=== PATIENT | female | born 1940 | race Hispanic/Latino ===

== ENCOUNTER 2020-01-26 20:39 | Emergency (ER) | payer MEDICARE, OTHER ==
[~2020-01-26] VITALS: Ht 154.9 cm; Wt 73.5 kg
[~2020-01-26 20:39] MED LIST: LEXAPRO PO; TRAMADOL HCL-A1 EAC1 PO; Z.0.ALPRAZOLAM0.5 MG PO; Z.0.LOVASTATIN20 MG PO; Z.0.MELOXICAM7.5 MG PO
[2020-01-26] MEDS ORDERED: IBUPROFEN 600 MG TAB PO STA ×2 (20:46→20:49)
[2020-01-26] MEDS ORDERED: CYCLOBENZAPRINE HCL 10 MG TAB PO ONE (21:00)
--- NOTE | 2020-01-26 22:16 | Diagnostic Imaging Report ---
Exam: Left elbow 3 views, left shoulder 2 views History: Fall on shoulder, laceration to elbow Comparison: None. Findings: Elbow: No acute, displaced fracture or dislocation. No joint effusion. Soft tissues unremarkable. No gross defect or radiopaque foreign body. Shoulder: Transscapular radiograph is suboptimal. Acute, comminuted fracture involving the surgical neck and greater tuberosity of the humerus with approximately 2 cm fracture fragment overriding. The humeral head is inferiorly displaced relative to the glenoid probably due to hemarthrosis. Acromioclavicular joint is intact. Impression: Acute, comminuted fracture of the surgical neck and greater tuberosity of the left humerus with fragment overriding as above. Signed by: Dr. Avila Grey M.D. on 01/26/2020 10:13 PM
--- NOTE | 2020-01-26 22:19 | Diagnostic Imaging Report ---
EXAMINATION: PA and lateral views of the chest. COMPARISON: None CLINICAL HISTORY: Fall DISCUSSION: The lungs are well inflated. No focal airspace consolidation, pleural effusion, or pneumothorax. Mild reticular prominence likely age-related fibrotic changes. Tortuous thoracic aorta with atherosclerotic calcification. Normal heart size. No overt pulmonary edema. Age-indeterminate moderate anterior compression deformity of a lower thoracic vertebral body, likely T12. Comminuted fracture of the surgical neck and greater tuberosity of the left humerus partially visualized. IMPRESSION: No acute cardiopulmonary abnormality. Partially visualized proximal left humeral fracture. Refer to dedicated shoulder radiographs same day for full details. Age-indeterminate moderate anterior compression deformity of a lower thoracic vertebral body, probably T12. Correlate for point tenderness which would suggest relative acuity. Signed by: Dr. Avila Grey M.D. on 01/26/2020 10:16 PM
[2020-01-26] MEDS ORDERED: HYDROCODONE/APAP 10MG-325MG TAB PO ONE (23:00)
--- NOTE | 2020-01-27 | Diagnostic Imaging Report ---
EXAMINATION: CT scan of the left shoulder and humerus without contrast TECHNIQUE: Spiral CT images of the left shoulder and humerus were obtained with supplemental coronal and sagittal reformatted images. No intravenous contrast was administered. COMPARISON: Plain films same day CLINICAL HISTORY:Fall DISCUSSION: ABSENCE OF INTRAVENOUS CONTRAST DECREASES SENSITIVITY FOR DETECTION OF FOCAL LESIONS AND VASCULAR PATHOLOGY. Redemonstration of the acute, comminuted fracture of the surgical neck of the left humerus with involvement of the greater tuberosity. There is overriding of the major fracture fragments by approximately 1.6 cm. The glenohumeral joint is maintained. Diffuse soft tissue swelling about the shoulder. No additional displaced fractures. The distal humerus is intact. IMPRESSION: Acute, comminuted fracture of the surgical neck and greater tuberosity of the left humerus with fracture fragment overriding as discussed. No glenohumeral dislocation. No additional fractures. Surrounding soft tissue and intramuscular hematoma. Signed by: Dr. Avila Grey M.D. on 01/26/2020 11:57 PM
[2020-01-28] MEDS ORDERED: PANTOPRAZOLE SO40 MG PO (13:09)
== END 2020-01-27 00:50 | disposition home or self-care (01) ==
LOC: ER 20:39
DX: S40.012A Contusion of left shoulder, initial encounter (principal); S50.02XA Contusion of left elbow, initial encounter; W18.30XA Fall on same level, unspecified, initial encounter; Y92.008 Other place in unspecified non-institutional (private) residence as the place of occurrence of the external cause; E78.5 Hyperlipidemia, unspecified; F41.9 Anxiety disorder, unspecified; K21.9 Gastro-esophageal reflux disease without esophagitis
CPT/HCPCS: 71046; 99283

== ENCOUNTER 2020-01-30 09:05 | Observation (INO) | payer MEDICARE ==
[2020-01-28 13:15] LABS: BASOPHILS % 0.2 % (0.0-1.0); EOSINOPHILS # (AUTO) 0.2 (0.0-0.4); EOSINOPHILS % 2.2 % (0.0-6.0); HEMATOCRIT 32.6 % (34.2-44.1); HEMOGLOBIN 10.5 g/dL (12.0-16.0); LYMPHOCYTES # (AUTO) 2.1 (1.0-3.2); LYMPHOCYTES % 22.9 % (18.0-39.1); MEAN CORPUSCULAR HEMOGLOBIN 32.9 pg (28-32); MEAN CORPUSCULAR HGB CONC 32.2 g/dL (31-35); MEAN CORPUSCULAR VOLUME 102.2 fL (81-99); MONOCYTES # (AUTO) 0.7 (0.2-0.8); MONOCYTES % 7.6 % (4.4-11.3); NEUTROPHILS % 66.8 % (38.7-80.0); PLATELET COUNT 159 x10e3/uL (140-360); RED BLOOD COUNT 3.19 x10e6/uL (3.6-5.1); RED CELL DISTRIBUTION WIDTH 13.3 % (11.7-14.4)
[~2020-01-30] VITALS: Ht 152.4 cm; Wt 77.6 kg
[~2020-01-30 09:05] MED LIST changes: +PANTOPRAZOLE SO40 MG PO
--- OUTSIDE RECORDS SUMMARY | 2020-01-30 09:07 | XMS REPORT ---
Author [facility] Address Unknown Phone Unavailable Care Team Providers Care Machining Technician Name Role Phone NATALIE SALES Unavailable Unavailable Problems This patient has no known problems. Allergies, Adverse Reactions, Alerts This patient has no known allergies or adverse reactions. Medications This patient has no known medications. Results Test Description Test Time Test Comments Text Results Atomic Results Result Comments CT SHOULDER LEFT WO 2020-01-26 23:53:00 [place] [address] Patient Name: JOE PETERS MR #: [id number] : 1940 Age/Sex: 79/F Req #: [id number] Adm Physician: Ordered by: NATALIE SALES DO Report #: [id number] Location: ER Room/Bed: Procedure: [id number] CT/CT SHOULDER LEFT WO Exam Date: 01/26/20 Exam Time: 2330 REPORT STATUS: Signed EXAMINATION: CT scan of the left shoulder and humerus without contrast TECHNIQUE: Spiral CT images of the left shoulder and humerus were obtained with supplemental coronal and sagittal reformatted images. No intravenous contrast was administered. COMPARISON: Plain films same day CLINICAL HISTORY:Fall DISCUSSION: ABSENCE OF INTRAVENOUS CONTRAST DECREASES SENSITIVITY FOR DETECTION OF FOCAL LESIONS AND VASCULAR PATHOLOGY. Redemonstration of the acute, comminuted fracture of the surgical neck of the left humerus with involvement of the greater tuberosity. There is overriding of the major fracture fragments by approximately 1.6 cm. The glenohumeral joint is maintained. Diffuse soft tissue swelling about the shoulder. No additional displaced fractures. The distal humerus is intact. IMPRESSION: Acute, comminuted fracture of the surgical neck and greater tuberosity of the left humerus with fracture fragment overriding as discussed. No glenohumeral dislocation. No additional fractures. Surrounding soft tissue and intramuscular hematoma. Signed by: Dr. Leon López M.D. on 01/26/2020 11:57 PM Dictated By: LEON LÓPEZ MD 56 Transcribed By: LEORA on 01/26/202356 COPY TO: NATALIE SALES DO CT HUMERUS LEFT WO 2020-01-26 23:53:00 [place] [address] Patient Name: JOE PETERS MR #: [id number] : 1940 Age/Sex: 79/F Req #: [id number] Adm Physician: Ordered by: NATALIE SALES DO Report #: [id number] Location: ER Room/Bed: Procedure: [id number] CT/CT HUMERUS LEFT WO Exam Date: 01/26/20 Exam Time: 2330 REPORT STATUS: Signed EXAMINATION: CT scan of the left shoulder and humerus without contrast TECHNIQUE: Spiral CT images of the left shoulder and humerus were obtained with supplemental coronal and sagittal reformatted images. No intravenous contrast was administered. COMPARISON: Plain films same day CLINICAL HISTORY:Fall DISCUSSION: ABSENCE OF INTRAVENOUS CONTRAST DECREASES SENSITIVITY FOR DETECTION OF FOCAL LESIONS AND VASCULAR PATHOLOGY. Redemonstration of the acute, comminuted fracture of the surgical neck of the left humerus with involvement of the greater tuberosity. There is overriding of the major fracture fragments by approximately 1.6 cm. The glenohumeral joint is maintained. Diffuse soft tissue swelling about the shoulder. No additional displaced fractures. The distal humerus is intact. IMPRESSION: Acute, comminuted fracture of the surgical neck and greater tuberosity of the left humerus with fracture fragment overriding as discussed. No glenohumeral dislocation. No additional fractures. Surrounding soft tissue and intramuscular hematoma. Signed by: Dr. eLon López M.D. on 01/26/2020 11:57 PM Dictated By: LEON LÓPEZ MD 56 Transcribed By: LEORA on 01/26/202356 COPY TO: NATALIE SALES DO CHEST 2 VIEWS 2020-01-26 22:13:00 [place] [address] Patient Name: JOE PETERS MR #: [id number] : 1940 Age/Sex: 79/F Req #: [id number] Adm Physician: Ordered by: NALLELY LEE GOLF PROFESSIONAL Report #: [id number] Location: ER Room/Bed: Procedure: [id number] DX/CHEST 2 VIEWS Exam Date: 01/26/20 Exam Time: 2144 REPORT STATUS: Signed EXAMINATION: PA and lateral views of the chest. COM PARISON: None CLINICAL HISTORY: Fall DISCUSSION: The lungs are well inflated. No focal airspace consolidation, pleural effusion, or pneumothorax. Mild reticular prominence likely age-related fibrotic changes. Tortuous thoracic aorta with atherosclerotic calcification. Normal heart size. No overt pulmonary edema. Age-indeterminate moderate anterior compression deformity of a lower thoracic vertebral body, likely T12. Comminuted fracture of the surgical neck and greater tuberosity of the left humerus partially visualized. IMPRESSION: No acute cardiopulmonary abnormality. Partially visualized proximal left humeral fracture. Refer to dedicated shoulder radiographs same day for full details. Age- indeterminate moderate anterior compression deformity of a lower thoracic vertebral body, probably T12. Correlate for point tenderness which would suggest relative acuity. Signed by: Dr. Leon López M.D. on 01/26/2020 10:16 PM Dictated By: LEON LÓPEZ MD 15 Transcribed By: LEORA on 01/26/202215 COPY TO: NALLELY LEE NP SHOULDER LEFT COMPLETE 2020-01-26 22:10:00 [place] [address] Patient Name: JOE PETERS MR #: [id number] : 1940 Age/Sex: 79/F Req #: [id number] Adm Physician: Ordered by: NALLELY LEE NP Report #: [id number] Location: ER Room/Bed: Procedure: [id number] DX/SHOULDER LEFT COMPLETE Exam Date: 01/26/20 Exam Time: 2144 REPORT STATUS: Signed Exam: Left elbow 3 views, left shoulder 2 views History: Fall on shoulder, laceration to elbow Comparison: None. Findings: Elbow: No acute, displaced fracture or dislocation. No joint effusion. Soft tissues unremarkable. No gross defect or radiopaque foreign body. Shoulder: Transscapular radiograph is suboptimal. Acute, comminuted fracture involving the surgical neck and greater tuberosity of the humerus with approximately 2 cm fracture fragment overriding. The humeral head is inferiorly displaced relative to the glenoid probably due to hemarthrosis. Acromioclavicular joint is intact. Impression: Acute, comminuted fracture of the surgical neck and greater tuberosity of the left humerus with fragment overriding as above. Signed by: Dr. Leon López M.D. on 01/26/2020 10:13 PM Dictated By: LEON LÓPEZ MD 12 Transcribed By: LEORA on 01/26/202212 COPY TO: NALLELY LEE NP ELBOW LEFT COMPLETE 2020-01-26 22:10:00 [place] [address] Patient Name: JOE PETERS MR #: [id number] : 1940 Age/Sex: 79/F Req #: [id number] Adm Physician: Ordered by: NALLELY LEE NP Report #: [id number] Location: ER Room/Bed: Procedure: [id number] DX/ELBOW LEFT COMPLETE Exam Date: 01/26/20 Exam Time: 2144 REPORT STATUS: Signed Exam: Left elbow 3 views, left shoulder 2 views History: Fall on shoulder, laceration to elbow Comparison: None. Findings: Elbow: No acute, displaced fracture or dislocation. No joint effusion. Soft tissues unremarkable. No gross defect or radiopaque foreign body. Shoulder: Transscapular radiograph is suboptimal. Acute, comminuted fracture involving the surgical neck and greater tuberosity of the humerus with approximately 2 cm fracture fragment overriding. The humeral head is inferiorly displaced relative to the glenoid probably due to hemarthrosis. Acromioclavicular joint is intact. Impression: Acute, comminuted fracture of the surgical neck and greater tuberosity of the left humerus with fragment overriding as above. Signed by: Dr. Leon López M.D. on 01/26/2020 10:13 PM Dictated By: LEON LÓPEZ MD 12 Transcribed By: LEORA on 01/26/202212 COPY TO: NALLELY LEE GOLF PROFESSIONAL SCR MAMM BILATERAL CEDRIC CAD DIGITAL 2019-12-12 16:16:54 - SCR MAMM BILATERAL CEDRIC CAD DIGITALBILATERAL DIGITAL SCREENING MAMMOGRAM 3D/2D WITH CAD: 12/08/2019CLINICAL: Asymptomatic. Digital breast tomosynthesis was performed in addition to routine CC and MLO views. Current mammographic images were evaluated by either a [employer] M-Vu or a [employer] ImageChecker CAD (computer aided detection system). Comparison is made to exams dated 09/12/2018 mammogram, 07/29 mammogram, and 03/11/2014 mammogram - [facility]. There are scattered fibroglandular tissues in both breasts. There are benign calcifications in both breasts. There also are benign intramammary nodes in both breasts. No suspicious mass, architectural distortion, malignant type calcification, or lymph node abnormality detected. Breast architecture is stable compared to prior exams.IMPRESSION: BENIGNThere is no mammographic evidence of malignancy. Resume annual screening mammography in one year. Adela adams/penkamini:12/12/2019 16:16:54 Scorer Single: Mely MOELLER, [facility]: BIRADS 1-2 Normal Mammogram BI-RADS: 2 Benign
[2020-01-30] MEDS ORDERED: CYCLOBENZAPRINE10 MG PO (09:52)
[2020-01-30] MEDS ORDERED: ULTRAM50 MG PO (09:52)
[2020-01-30] MEDS ORDERED: NAPROXEN500 MG PO (09:52)
[2020-01-30] MEDS ORDERED: CEFAZOLIN SOD 1 GM/NS 50ML 100 ML IV ONE (09:54)
[2020-01-30] MEDS ORDERED: BACITRACIN 50,000 UNIT VIAL ONE (12:08)
[2020-01-30] MEDS ORDERED: LIDOCAINE 1% W/EPINEPHRINE 20 ML VIAL ONE (13:25)
[2020-01-30] MEDS ORDERED: ROCURONIUM BROMIDE 10 MG/ML 5ML VIAL ONE (13:38)
[2020-01-30] MEDS ORDERED: PROPOFOL IV EMULSION 10 MG/ML 20 ML VIAL ONE (13:38)
[2020-01-30] MEDS ORDERED: DESFLURANE 240 ML BTL INH ONE (13:38)
[2020-01-30] MEDS ORDERED: DEXAMETHASONE SOD PHOS INJ 4 MG/ML VIAL ONE (13:38)
[2020-01-30] MEDS ORDERED: LIDOCAINE HCL 2% LOCAL INJ 5 ML SDV VIAL INJ ONE (13:38)
[2020-01-30] MEDS ORDERED: NEOSTIGMINE 1 MG/ML 10ML VIAL ONE (13:38)
[2020-01-30] MEDS ORDERED: ONDANSETRON HCL INJ 2MG/ML 2ML 2 MG/ML VIAL ONE (13:38)
[2020-01-30] MEDS ORDERED: GLYCOPYRROLATE INJ 0.2 MG/ML VIAL ONE (13:38)
[2020-01-30] MEDS ORDERED: ONDANSETRON HCL INJ 2MG/ML 2ML 2 MG/ML VIAL IV PRN (14:45)
[2020-01-30] MEDS ORDERED: HYDROMORPHONE 0.2MG/ML-SOD CHL 30ML PCA SYRINGE IV PRN (14:45)
[2020-01-30] MEDS ORDERED: NALOXONE HCL INJ 0.4 MG/ML AMP IV PRN (14:45)
[2020-01-30] MEDS ORDERED: ROPIVACAINE 0.5% 5 MG/ML 30 ML SDV ONE (15:23)
[2020-01-30] MEDS ORDERED: LIDOCAINE 2% /EPINEPHRINE 20 ML SDV INJ ONE (15:23)
[2020-01-30] MEDS ORDERED: MIDAZOLAM HCL 2 MG/2 ML VIAL ONE (15:31)
[2020-01-30] MEDS ORDERED: FENTANYL CITRATE/PF 100MCG/2 ML INJ ONE (15:31)
--- NOTE | 2020-01-30 16:16 | NUR ---
Received patient via stretcher. Accompanied by son. ADALGISAOX4 to time, person, place, situation. Respirations even and unlabored. Left arm with sling/immobilizer. Dressing to left upper arm clean, dry, and intact. Oriented patient and son to room. Instructed to use call light for assistance. Voiced understanding.
[2020-01-30 16:23] VITALS: BP 130/60
[2020-01-30 17:00] VITALS: BP 130/60
[2020-01-30] MEDS: SODIUM CHLORIDE 0.9% 1000ML 1,000 ML IV SCH (17:28)
--- NOTE | 2020-01-30 17:30 | NUR ---
Patient voided without discomfort
[2020-01-30] MEDS ORDERED: PEPCID20 MG PO (17:42)
--- NOTE | 2020-01-30 19:15 | NUR ---
Report given to oncoming nurse of patient's status. Resting in bed. AAOX3 to time,person, place. Respirations even and unlabored. Side rails upx2, call light within reach, family at bedside.
--- NOTE | 2020-01-30 19:23 | NUR ---
Received bedside report from day nurse. Patient awake and resting in bed, no s/s of distress at this time. All safety measures in place. Family at bedside. Will continue to monitor.
[2020-01-30 20:00] VITALS: BP 158/71
[2020-01-30 22:22] VITALS: BP 158/71
[2020-01-30] MEDS: CEFAZOLIN SOD 1 GM/NS 50ML 50 ML IV SCH (22:35)
[2020-01-31] VITALS (7 sets, daily range): BP systolic 131–168; BP diastolic 63–88
[2020-01-31 06:04] LABS: HEMATOCRIT 28.9 % (34.2-44.1); HEMOGLOBIN 9.2 g/dL (12.0-16.0)
[2020-01-31] MEDS: SODIUM CHLORIDE 0.9% 1000ML 1,000 ML IV SCH (06:16)
[2020-01-31] MEDS: CEFAZOLIN SOD 1 GM/NS 50ML 50 ML IV SCH ×2 (06:16→12:17)
--- NOTE | 2020-01-31 10:34 | NUR ---
Patient alert and responsive, OOB and ambulated in the room with assist, sling and immobilizer in place, pains well managed, will monitor.
--- NOTE | 2020-01-31 12:08 | NUR ---
MALDONADO EXPLAINED TO PT, SIGNED BY PT AND PLACED IN CHART COPY OF MALDONADO TO PT IN CARE TRANSITIONS FOLDER
--- NOTE | 2020-01-31 13:30 | NUR ---
Rounds by Dr. Irwin, orders to d/c DROSS PULLER pump and to change dressing today, and patient will be discharged today. Patient OOB and sitting up on chair in the room,
--- NOTE | 2020-01-31 15:14 | NUR ---
Dressing changed to left shoulder, scant dry bloody drainage and lm well approximated, no erythema noted, new dressing applied and sling still in place.
--- NOTE | 2020-01-31 16:02 | NUR ---
Patient stable, provided with discharge summary and prescription, contacts for f/u appointment, pains well managed. IV line removed with cath tip in place, dressing applied. Sling in place to left arm, patient discharged.
--- NOTE | 2020-01-31 23:44 | Operative Report ---
DATE OF PROCEDURE: 01/30/2020 SURGEON: Juan Pablo Irwin MD PREOPERATIVE DIAGNOSIS: Three-part left proximal humerus fracture. POSTOPERATIVE DIAGNOSIS: Three-part left proximal humerus fracture. OPERATION/PROCEDURE PERFORMED: The patient underwent an open reduction and internal fixation of the left three-part proximal humerus fracture. HOME VISIT FIELD CARE MANAGER: BHAKTI Lin ANESTHESIA: General endotracheal intubation anesthesia. IV FLUIDS: Per the Anesthesia record. BRIEF DISCUSSION OF THE PATIENT'S OPERATIVE PROCEDURE: Ms. Escobedo was taken to the operating room and placed in supine position on the operating table. Following induction of general anesthesia as well as endotracheal intubation, the patient's left upper extremity was examined under anesthesia. She was found to have bruising and ecchymosis involving the left arm. Fluoroscopic evaluation of the left proximal humerus demonstrated a three-part proximal humerus fracture with displacement of the greater tuberosity fracture fragment. The patient's upper extremity was prepped and draped in standard surgical fashion. The case was begun by performing a standard deltopectoral approach. An incision was begun roughly at the level of the clavicle and extended distally approximating the deltopectoral groove. This incision was carried through skin only. Blunt dissection was used to deepen the incision. The cephalic vein was identified. The cephalic vein was then freed of its soft tissue investments and mobilized medially. The deltopectoral groove was easily identified and the deltoid was retracted laterally. The underlying humerus was identified. The pectoralis muscle was released from its insertion into the anterolateral aspect of the humerus. The underlying biceps tendon was found to be torn. The dissection was carried proximally and the fracture site was easily identified. The fracture was mobilized and the wound was copiously irrigated. The greater tuberosity fracture fragment was mobilized and brought in line with the head. There was comminution involving the greater tuberosity fracture fragment and therefore, suture was used to draw the fracture fragments together to a near anatomic position. The shaft was then positioned in line with the head and a plate was chosen and positioned in the anterolateral aspect of the humerus. This locking plate was affixed with combinations of cortical and locking screws. The position of the plate as well as the position of the screws were then assessed using fluoroscopy and found to be appropriate. Arm was placed through range of motion once the plate had been placed and the head and shaft were found to move in tandem. The wound was again copiously irrigated. The deltopectoral groove was reapproximated in taking care to protect the cephalic vein. The remaining soft tissues were closed in a multilayer fashion. Sterile dressings were applied. The patient was then provided a shoulder immobilizer, awakened, and taken to the postanesthesia care unit in stable condition. Chloé Mack acted as hair or beauty salon assistant for this case and was necessary for the prepping and draping of the patient as well as the positioning of the arm and retraction of soft tissues to allow this case to be successful. MD RENEE Moody/KEVIN /[id number]
== END 2020-01-31 16:08 | disposition home or self-care (01) ==
LOC: OR 09:05 → PACU V 14:40 → MED/SURG 16:16
PROVIDERS: ADMIT Specialist; ATTEND Specialist
DX: S42.232A 3-part fracture of surgical neck of left humerus, initial encounter for closed fracture (principal); Z88.5 Allergy status to narcotic agent; Z87.442 Personal history of urinary calculi; F41.9 Anxiety disorder, unspecified
CPT/HCPCS: 23680; 36415 ×2; 85014; 85018; 85025; 93005; C1713; G0378 ×2; J0690 ×2; J1100; J2001 ×2; J2250; J2405; J2704; J2710; J2795; J3010; J7030 ×2